=== PATIENT | female | born 1990 | race Caucasian/White ===

== ENCOUNTER 2018-01-21 15:58 | Emergency (ER) | payer SELFPAY ==
[2018-01-21 16:11] VITALS: BP 100/69; PULSE 86; RESP 14; TEMP 36.7; O2SAT 99; BMI 25.2
[2018-01-21 16:41] LABS: Hematocrit 39.3 % (36-46); Mean Corpuscular HGB Conc 33.1 % (30-36); Mean Corpuscular Hemoglobin 31.9 PG (26-34); Mean Corpuscular Volume 96.3 fL (80-100); Platelet Count 173 X10^3/uL (150-400); Red Blood Cell Count 4.08 X10^6/uL (4.0-5.2); Red Cell Distribution Width 13.2 % (11.6-14.8); White Blood Cell Count 5.3 X10^3/uL (4.5-11.0)
[2018-01-21 17:03] LABS: Alanine Aminotransferase 22 IU/L (9-52); Albumin 4.2 g/dL (3.5-5.0); Albumin Globulin Ratio 1.5 (1.0-2.8); Alkaline Phosphatase 39 U/L (38-126); Aspartate Aminotransferase 24 IU/L (14-36); Bilirubin Total 0.5 mg/dL (0.2-1.3); Blood Urea Nitrogen 7 mg/dL (7-17); Calcium 9.5 mg/dL (8.4-10.2); Carbon Dioxide 24 mmol/L (22-32); Chloride 105 mmol/L (98-107); Estimated Glomerular Filt Rate > 60.0 mL/min (>60); Globulin 2.8 g/dL (1.7-4.1); Glucose 82 mg/dL (70-100); Lipase 114 U/L (23-300); Potassium 5.1 mmol/L (3.4-5.1); Sodium 141 mmol/L (137-145)
[2018-01-21 17:14] LABS: HEMOLYSIS 56 (0-50)
[2018-01-21 17:17] LABS: Bacteria Urine None Seen
[2018-01-21 17:25] LABS: RBC Urine 1-5/HPF (0-5/HPF); Squamous Epithelial Cell Urine 1-5 /HPF; WBC Urine 1-5/HPF (0-5/HPF)
[2018-01-21 18:25] LABS: Neutrophils Absolute Manual 2809 /uL (3000-5900); RBC Morphology Normal Morphology; Total Cells Counted 100
[2018-01-21 19:54] VITALS: BP 101/64; PULSE 85; RESP 20; TEMP 36.7; O2SAT 100
--- NOTE | 2018-01-21 20:27 | ED.ABDPAIN ---
HPI - Abdominal Pain <FREDIS Dacosta - Last Filed: 01/22/18 00:21> General Chief Complaint: Abdominal Pain Stated Complaint: LEFT SIDE PAIN Time Seen by Provider: 01/21/18 17:12 Source: patient Mode of arrival: ambulatory Limitations: no limitations History of Present Illness HPI narrative: Patient presents with chief complaint of left-sided abdominal pain. This started yesterday. She denies any nausea vomiting diarrhea or constipation. She denies any fevers. She denies any chest pain or shortness of breath. She denies any appetite changes. She states she started her period about 3 days ago. Her last period was last month. She denies chance of . She reports no abdominal history and has no history of abdominal surgeries. She denies any urinary symptoms and denies flank pain. She denies dysuria or urgency but does complain of some frequency. She denies any vaginal discharge. She states her current menstrual bleeding is light. Related Data Home Medications Medication Instructions Recorded Confirmed No Known Home Medications 01/21/18 01/21/18 Allergies Allergy/AdvReac Type Severity Reaction Status Date / Time aspirin Allergy Intermediate Hives Verified 01/21/18 16:14 Penicillins Allergy Intermediate Hives Verified 01/21/18 16:14 Review of Systems <KLEBER Dacosta - Last Filed: 01/22/18 00:21> Review of Systems GENERAL: Denies chills, fatigue, malaise, fever, sweats. HEENT: Denies sinus pain, ear pain, sore throat, difficulty swallowing, dizziness. RESPIRATORY: Denies dyspnea, cough, wheezing, hemoptysis, sputum. CARDIOVASCULAR: Denies chest pain, palpitations, orthopnea, edema, GASTROINTESTINAL: See HPI : Denies dysuria, frequency, incontinence, hematuria, urinary retention. MUSCULOSKELETAL: denies weakness, joint pain, or bony pain SKIN: Denies rash, skin lesions, or other NEUROLOGIC: Denies weakness, headache, numbness, change in speech, confusion, seizures, incoordination. PSYCHIATRIC: No concerning psychosocial issues. 12 point review of systems is negative except for those stated above Exam <KLEBER Dacosta - Last Filed: 01/22/18 00:21> Narrative Exam Narrative: GENERAL: This is a well-nourished, well-developed patient, in mild distress lying on stretcher HEAD: Atraumatic. Normocephalic. No temporal or scalp tenderness. EYES: Pupils equal round and reactive. Extraocular motions intact. No scleral icterus. No injection or drainage. ENT: Nose without bleeding, purulent drainage or septal hematoma. Throat without erythema, tonsillar hypertrophy or exudate. Uvula midline. Airway patent. NECK: Trachea midline. No JVD or lymphadenopathy. Supple, nontender, no meningeal signs. CARDIOVASCULAR: Regular rate and rhythm without murmurs, gallops, or rubs. RESPIRATORY: Clear to auscultation. Breath sounds equal bilaterally. No wheezes, rales, or rhonchi. GASTROINTESTINAL: Abdomen soft, nondistended. Active bowel sounds all 4 quadrants. No palpable hepatosplenomegaly. Tenderness to palpation of left upper quadrant and left lower quadrant with slight guarding noted. No pain to palpation right upper quadrant or right lower quadrant. EXTREMITIES: No clubbing, cyanosis, or edema. No joint tenderness, effusion, or edema noted. BACK: Nontender without deformity or crepitance. No flank tenderness. NEURO: AOx3. SKIN: No rash or erythema. Initial Vital Signs Initial Vital Signs: Vital Signs Temperature 98.1 F 01/21/18 16:11 Pulse Rate 86 01/21/18 16:11 Respiratory Rate 14 01/21/18 16:11 Blood Pressure 100/69 01/21/18 16:11 Pulse Oximetry 99 01/21/18 16:11 <Jeb Mcdonald DO - Last Filed: 01/22/18 05:42> Initial Vital Signs Initial Vital Signs: Vital Signs Temperature 98.1 F 01/21/18 16:11 Pulse Rate 86 01/21/18 16:11 Respiratory Rate 14 01/21/18 16:11 Blood Pressure 100/69 01/21/18 16:11 Pulse Oximetry 99 01/21/18 16:11 Course <FREDIS Dacosta - Last Filed: 01/22/18 00:21> Orders Ordered: ED Orders 01/21/18 21:04 US pelvic complete Stat 01/21/18 22:25 ABO RH Type Stat Discontinued Medications Acetaminophen (Tylenol) 650 mg PO NOW ONE Stop: 01/21/18 20:57 Last Admin: 01/21/18 21:03 Dose: 650 mg Morphine Sulfate (Morphine) 4 mg IV NOW ONE Stop: 01/21/18 20:29 Last Admin: 01/21/18 21:00 Dose: Ondansetron HCl (Zofran) 4 mg IV NOW ONE Stop: 01/21/18 20:29 Last Admin: 01/21/18 21:01 Dose: Ondansetron HCl (Zofran Odt) 4 mg PO NOW ONE Stop: 01/21/18 20:57 Last Admin: 01/21/18 21:02 Dose: 4 mg Oxycodone HCl (Percolone) 5 mg PO NOW ONE Stop: 01/22/18 00:01 Last Admin: 01/22/18 00:55 Dose: 5 mg Oxycodone/Acetaminophen (Endocet 5/325 Prepack) 1 bottle MISC SEEINSTR ONE Stop: 01/22/18 00:17 Last Admin: 01/22/18 00:43 Dose: 1 bottle Consultations Consultation #1: Spoke with Dr Crews regarding patient as well as senior maintenance technician's report of mass in ovary. Slight vaginal bleeding combined with elevated serum beta HCG and a mass in her ovary raise concern of ectopic. Time: 22:30 Consultation #2: Spoke with Dr Crews regarding the plan for patient. If official ultrasound report shows hemorrhagic ectopic, we will re page her. If there is no hemorrhage, we will give 50 mg methotrexate IM per meter and discharge her with pain control. Discussed plan for patient to follow up with her office in 4 days for repeat HCG. Time: 22:45 Consultation #3: Spoke with Dr. Crews again regarding ultrasound results. Plan is to discharge patient. Have her follow up in 4 days with clinic. Discussed strict return precautions. Time: 12:00 Vital Signs - 8 hr 01/21/18 23:17 01/22/18 01:10 Pulse Rate 64 65 Respiratory Rate 14 18 Blood Pressure 101/58 L Blood Pressure [Right Arm] 103/62 Pulse Oximetry 98 100 <Jeb Mcdonald DO - Last Filed: 01/22/18 05:42> Orders Ordered: ED Orders 01/21/18 21:04 US pelvic complete Stat 01/21/18 22:25 ABO RH Type Stat Discontinued Medications Acetaminophen (Tylenol) 650 mg PO NOW ONE Stop: 01/21/18 20:57 Last Admin: 01/21/18 21:03 Dose: 650 mg Morphine Sulfate (Morphine) 4 mg IV NOW ONE Stop: 01/21/18 20:29 Last Admin: 01/21/18 21:00 Dose: Ondansetron HCl (Zofran) 4 mg IV NOW ONE Stop: 01/21/18 20:29 Last Admin: 01/21/18 21:01 Dose: Ondansetron HCl (Zofran Odt) 4 mg PO NOW ONE Stop: 01/21/18 20:57 Last Admin: 01/21/18 21:02 Dose: 4 mg Oxycodone HCl (Percolone) 5 mg PO NOW ONE Stop: 01/22/18 00:01 Last Admin: 01/22/18 00:55 Dose: 5 mg Oxycodone/Acetaminophen (Endocet 5/325 Prepack) 1 bottle MISC SEEINSTR ONE Stop: 01/22/18 00:17 Last Admin: 01/22/18 00:43 Dose: 1 bottle Vital Signs - 8 hr 01/21/18 23:17 01/22/18 01:10 Pulse Rate 64 65 Respiratory Rate 14 18 Blood Pressure 101/58 L Blood Pressure [Right Arm] 103/62 Pulse Oximetry 98 100 MDM - Abdominal Pain <KATHERINE Dacosta-BC - Last Filed: 01/22/18 00:21> Lab Data Result diagrams: 01/21/18 16:21 01/21/18 16:21 Lab Results 01/21/18 01/21/18 01/21/18 Range/Units 16:21 16:21 16:21 WBC 5.3 (4.5-11.0) X10^3/uL RBC 4.08 (4.0-5.2) X10^6/uL Hgb 13.0 (12.0-16.0) g/dL Hct 39.3 (36-46) % MCV 96.3 (80-100) fL MCH 31.9 (26-34) PG MCHC 33.1 (30-36) % RDW 13.2 (11.6-14.8) % Plt Count 173 (150-400) X10^3/uL Total Counted 100 Seg Neutrophils % 53.0 (38-70) % Lymphocytes % (Manual) 42.0 (25-45) % Monocytes % (Manual) 3.0 (2-11) % Eosinophils % (Manual) 2.0 (2-4) % Neutrophils # (Manual) 2809 L (3012-4862) /uL RBC Morphology Normal morphology Sodium 141 (137-145) mmol/L Potassium 5.1 (3.4-5.1) mmol/L Chloride 105 (98-107) mmol/L Carbon Dioxide 24 (22-32) mmol/L BUN 7 (7-17) mg/dL Creatinine 0.70 (0.52-1.04) mg/dL Estimated GFR > 60.0 (>60) mL/min BUN/Creatinine Ratio 10.0 (6-22) Glucose 82 (70-100) mg/dL Calcium 9.5 (8.4-10.2) mg/dL Total Bilirubin 0.5 (0.2-1.3) mg/dL AST 24 (14-36) IU/L ALT 22 (9-52) IU/L Alkaline Phosphatase 39 (38-126) U/L Total Protein 7.0 (6.3-8.2) g/dL Albumin 4.2 (3.5-5.0) g/dL Globulin 2.8 (1.7-4.1) g/dL Albumin/Globulin Ratio 1.5 (1.0-2.8) Lipase 114 (23-300) U/L HCG, Quant 2430.4 mIU/mL Urine RBC (0-5/HPF) Urine WBC (0-5/HPF) Ur Squamous Epith Cells Urine Bacteria (None) Ur Culture Indicated? Micro UA Comment Blood Type 01/21/18 01/21/18 Range/Units 16:30 22:25 WBC (4.5-11.0) X10^3/uL RBC (4.0-5.2) X10^6/uL Hgb (12.0-16.0) g/dL Hct (36-46) % MCV (80-100) fL MCH (26-34) PG MCHC (30-36) % RDW (11.6-14.8) % Plt Count (150-400) X10^3/uL Total Counted Seg Neutrophils % (38-70) % Lymphocytes % (Manual) (25-45) % Monocytes % (Manual) (2-11) % Eosinophils % (Manual) (2-4) % Neutrophils # (Manual) (5320-1540) /uL RBC Morphology Sodium (137-145) mmol/L Potassium (3.4-5.1) mmol/L Chloride (98-107) mmol/L Carbon Dioxide (22-32) mmol/L BUN (7-17) mg/dL Creatinine (0.52-1.04) mg/dL Estimated GFR (>60) mL/min BUN/Creatinine Ratio (6-22) Glucose (70-100) mg/dL Calcium (8.4-10.2) mg/dL Total Bilirubin (0.2-1.3) mg/dL AST (14-36) IU/L ALT (9-52) IU/L Alkaline Phosphatase (38-126) U/L Total Protein (6.3-8.2) g/dL Albumin (3.5-5.0) g/dL Globulin (1.7-4.1) g/dL Albumin/Globulin Ratio (1.0-2.8) Lipase (23-300) U/L HCG, Quant mIU/mL Urine RBC 1-5/hpf (0-5/HPF) Urine WBC 1-5/hpf (0-5/HPF) Ur Squamous Epith Cells 1-5 /hpf Urine Bacteria None seen (None) Ur Culture Indicated? 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 Coexistent blood clot or endometriosis not excluded. Molar should be considered in the setting of increased HCG. Also noted right ovarian corpus luteal cyst with size in the physiologic range. Bilateral ovarian flow documented. ECHO Brittany material noted within the endometrial cavity with eccentric blood flow. Ill-defined margins of the endometrium margin junctional zone. [facility] Narrative Medical decision making narrative: Patient presents with chief complaint of abdominal pain. Though she denied possibility of , she had several urine positive HCG. She did have an elevated serum quant HCG at 2430. Thus with her abdominal pain, elevated HCG, vaginal bleeding, a ultrasound was obtained. This raised concern for a mass in her right ovary. Official ultrasound report raise concern for echogenic material noted in the endometrial cavity. Radiology discussed possibility of a molar . I spoke with Dr. Crews, who stated that her beta HCG is not high enough to be considered for molar . Plan is to discharge patient with strict follow-up on Wednesday. Patient's blood type is A positive and thus does not need RhoGAM. Discussed at length with patient return precautions for severe abdominal pain fever, worsening, any acute concerns. Discussed importance of follow-up on Wednesday. Patient had no questions or concerns upon discharge. <Jeb Mcdonald, DO - Last Filed: 01/22/18 05:42> Lab Data Lab Results 01/21/18 01/21/18 01/21/18 Range/Units 16:21 16:21 16:21 WBC 5.3 (4.5-11.0) X10^3/uL RBC 4.08 (4.0-5.2) X10^6/uL Hgb 13.0 (12.0-16.0) g/dL Hct 39.3 (36-46) % MCV 96.3 (80-100) fL MCH 31.9 (26-34) PG MCHC 33.1 (30-36) % RDW 13.2 (11.6-14.8) % Plt Count 173 (150-400) X10^3/uL Total Counted 100 Seg Neutrophils % 53.0 (38-70) % Lymphocytes % (Manual) 42.0 (25-45) % Monocytes % (Manual) 3.0 (2-11) % Eosinophils % (Manual) 2.0 (2-4) % Neutrophils # (Manual) 2809 L (6320-8377) /uL RBC Morphology Normal morphology Sodium 141 (137-145) mmol/L Potassium 5.1 (3.4-5.1) mmol/L Chloride 105 (98-107) mmol/L Carbon Dioxide 24 (22-32) mmol/L BUN 7 (7-17) mg/dL Creatinine 0.70 (0.52-1.04) mg/dL Estimated GFR > 60.0 (>60) mL/min BUN/Creatinine Ratio 10.0 (6-22) Glucose 82 (70-100) mg/dL Calcium 9.5 (8.4-10.2) mg/dL Total Bilirubin 0.5 (0.2-1.3) mg/dL AST 24 (14-36) IU/L ALT 22 (9-52) IU/L Alkaline Phosphatase 39 (38-126) U/L Total Protein 7.0 (6.3-8.2) g/dL Albumin 4.2 (3.5-5.0) g/dL Globulin 2.8 (1.7-4.1) g/dL Albumin/Globulin Ratio 1.5 (1.0-2.8) Lipase 114 (23-300) U/L HCG, Quant 2430.4 mIU/mL Urine RBC (0-5/HPF) Urine WBC (0-5/HPF) Ur Squamous Epith Cells Urine Bacteria (None) Ur Culture Indicated? Micro UA Comment Blood Type 01/21/18 01/21/18 Range/Units 16:30 22:25 WBC (4.5-11.0) X10^3/uL RBC (4.0-5.2) X10^6/uL Hgb (12.0-16.0) g/dL Hct (36-46) % MCV (80-100) fL MCH (26-34) PG MCHC (30-36) % RDW (11.6-14.8) % Plt Count (150-400) X10^3/uL Total Counted Seg Neutrophils % (38-70) % Lymphocytes % (Manual) (25-45) % Monocytes % (Manual) (2-11) % Eosinophils % (Manual) (2-4) % Neutrophils # (Manual) (4975-2080) /uL RBC Morphology Sodium (137-145) mmol/L Potassium (3.4-5.1) mmol/L Chloride (98-107) mmol/L Carbon Dioxide (22-32) mmol/L BUN (7-17) mg/dL Creatinine (0.52-1.04) mg/dL Estimated GFR (>60) mL/min BUN/Creatinine Ratio (6-22) Glucose (70-100) mg/dL Calcium (8.4-10.2) mg/dL Total Bilirubin (0.2-1.3) mg/dL AST (14-36) IU/L ALT (9-52) IU/L Alkaline Phosphatase (38-126) U/L Total Protein (6.3-8.2) g/dL Albumin (3.5-5.0) g/dL Globulin (1.7-4.1) g/dL Albumin/Globulin Ratio (1.0-2.8) Lipase (23-300) U/L HCG, Quant mIU/mL Urine RBC 1-5/hpf (0-5/HPF) Urine WBC 1-5/hpf (0-5/HPF) Ur Squamous Epith Cells 1-5 /hpf Urine Bacteria None seen (None) Ur Culture Indicated? Not Reportable Micro UA Comment Not Reportable Blood Type A Positive Point of care testing: Point of Care Testing Test Results Positive Urine Dip Bedside Urine Glucose Negative Bedside Urine Bilirubin - Negative Bedside Urine Ketone - Negative Urine Specific Palm 1.030 Bedside Urine Occult Blood +++ Bedside Urine pH 6.0 Bedside Urine Protein +/- 15 Bedside Urine Urobilinogen - Negative Bedside Urine Nitrite - Negative Bedside Urine Leukocytes - Negative Esterase Discharge Plan Departure Patient Disposition: Home Clinical Impression: Spontaneous Discharge Date/Time: 01/22/18 01:11 Interventions: ED Discharge Assessment Last Done: 01/22/18 01:10 Instructions: DI for Miscarriage, DI for Abdominal Pain-Adult Activity Restrictions/Additional Instructions: You came in today for abdominal pain. We found that you had a positive test. However ultrasound does not show an intrauterine at this time. I believe you had a spontaneous miscarriage. Please follow-up with Dr. Crews on Wednesday. This is absolutely imperative. Come back to the emergency department if you have any acute pain, fever or any acute concerns. I want you to have a low threshold for coming back. I have given you a small pack of medication prescription. Please do not drive on this as it is a narcotic. It could also be constipating. Again, please follow-up as we discussed on Wednesday. Please come back to the emergency department if necessary. Prescriptions: No Action No Known Home Medications RF: 0 Referrals: Radha Crews DO [Physician] - <Jeb Mcdonald DO - Last Filed: 01/22/18 05:42> Cosign ED Attending Alfredature Attestation: I was immediately available in the department for consultation. Documentation has been reviewed. I agree with assessment and plan.
[2018-01-21] MEDS: ONDANSETRON 4 MG ODT PO (21:02)
[2018-01-21] MEDS: ACETAMINOPHEN 325 MG TABLET 650 MG PO (21:03)
--- NOTE | 2018-01-21 21:04 | DI.US.S_ITS ---
PROCEDURE: US PELVIC COMPLETE INDICATIONS: POSITIVE HCG; BLEEDING TECHNIQUE: Real-time scanning was performed of the pelvic organs, with image documentation. Additional endovaginal scanning was necessary due to incomplete visualization of the adnexal and endometrial structures by transabdominal scanning. COMPARISON: None. FINDINGS: Transabdominal scanning: Limited scanning through the kidneys shows no hydronephrosis. No pathologic free abdominal or pelvic fluid. Endovaginal scanning: Uterus: Uterus measures 7.6 x 3.5 x 4.8 cm. The endometrial complex measures 13.5 mm in diameter. An irregularly marginated echogenic avascular mass is present within the endometrial canal. There is circumferential hyperemia within the endometrium. No intrauterine gestation or gestational sac visualized. Trace hypoechoic fluid is present within the endometrial canal. Ovaries: The right ovary measures 2.6 x 1.7 x 1.5 cm. There is a 1.3 x 1.1 x 1.2 cm thick rimmed, centrally cystic mass within the right ovary with peripheral vascularity. The left ovary measures 3.4 x 1.3 x 1.0 cm and has normal echotexture. IMPRESSION: 1. Avascular echogenic mass within the endometrial canal. Differential considerations include retained products of conception, clot, and molar . Although less likely, early dates and intrauterine gestation could also be considered the differential. 2. Findings suspicious for right corpus luteal cyst. However, given the lack of intrauterine gestation or visualized gestational sac, ectopic cannot be excluded and close clinical surveillance is recommended. These findings were discussed with Dr. Fair at 9 AM on 01/22/18. Dictated by: Cary Amaro M.D. on 01/22/2018 at 8:55 Approved by: Cary Amaro M.D. on 01/22/2018 at 9:01
--- NOTE | 2018-01-21 21:08 | PC.NURSE ---
Urine confirmed by three time with preg test.
[2018-01-21 21:17] LABS: HCG Quantitative /Beta subunit 2430.4 mIU/mL
[2018-01-21 23:17] VITALS: BP 103/62; PULSE 64; RESP 14; O2SAT 98
--- NOTE | 2018-01-21 23:38 | ED_ITS ---
HPI - Abdominal Pain <FREDIS Dacosta - Last Filed: 01/22/18 00:21> General Chief Complaint: Abdominal Pain Stated Complaint: LEFT SIDE PAIN Time Seen by Provider: 01/21/18 17:12 Source: patient Mode of arrival: ambulatory Limitations: no limitations History of Present Illness HPI narrative: Patient presents with chief complaint of left-sided abdominal pain. This started yesterday. She denies any nausea vomiting diarrhea or constipation. She denies any fevers. She denies any chest pain or shortness of breath. She denies any appetite changes. She states she started her period about 3 days ago. Her last period was last month. She denies chance of . She reports no abdominal history and has no history of abdominal surgeries. She denies any urinary symptoms and denies flank pain. She denies dysuria or urgency but does complain of some frequency. She denies any vaginal discharge. She states her current menstrual bleeding is light. Related Data Home Medications Medication Instructions Recorded Confirmed No Known Home Medications 01/21/18 01/21/18 Allergies Allergy/AdvReac Type Severity Reaction Status Date / Time aspirin Allergy Intermediate Hives Verified 01/21/18 16:14 Penicillins Allergy Intermediate Hives Verified 01/21/18 16:14 Review of Systems <KLEBER Dacosta - Last Filed: 01/22/18 00:21> Review of Systems GENERAL: Denies chills, fatigue, malaise, fever, sweats. HEENT: Denies sinus pain, ear pain, sore throat, difficulty swallowing, dizziness. RESPIRATORY: Denies dyspnea, cough, wheezing, hemoptysis, sputum. CARDIOVASCULAR: Denies chest pain, palpitations, orthopnea, edema, GASTROINTESTINAL: See HPI : Denies dysuria, frequency, incontinence, hematuria, urinary retention. MUSCULOSKELETAL: denies weakness, joint pain, or bony pain SKIN: Denies rash, skin lesions, or other NEUROLOGIC: Denies weakness, headache, numbness, change in speech, confusion, seizures, incoordination. PSYCHIATRIC: No concerning psychosocial issues. 12 point review of systems is negative except for those stated above Exam <KLEBER Dacosta - Last Filed: 01/22/18 00:21> Narrative Exam Narrative: GENERAL: This is a well-nourished, well-developed patient, in mild distress lying on stretcher HEAD: Atraumatic. Normocephalic. No temporal or scalp tenderness. EYES: Pupils equal round and reactive. Extraocular motions intact. No scleral icterus. No injection or drainage. ENT: Nose without bleeding, purulent drainage or septal hematoma. Throat without erythema, tonsillar hypertrophy or exudate. Uvula midline. Airway patent. NECK: Trachea midline. No JVD or lymphadenopathy. Supple, nontender, no meningeal signs. CARDIOVASCULAR: Regular rate and rhythm without murmurs, gallops, or rubs. RESPIRATORY: Clear to auscultation. Breath sounds equal bilaterally. No wheezes , rales, or rhonchi. GASTROINTESTINAL: Abdomen soft, nondistended. Active bowel sounds all 4 quadrants. No palpable hepatosplenomegaly. Tenderness to palpation of left upper quadrant and left lower quadrant with slight guarding noted. No pain to palpation right upper quadrant or right lower quadrant. EXTREMITIES: No clubbing, cyanosis, or edema. No joint tenderness, effusion, or edema noted. BACK: Nontender without deformity or crepitance. No flank tenderness. NEURO: AOx3. SKIN: No rash or erythema. Initial Vital Signs Initial Vital Signs: Vital Signs Temperature 98.1 F 01/21/18 16:11 Pulse Rate 86 01/21/18 16:11 Respiratory Rate 14 01/21/18 16:11 Blood Pressure 100/69 01/21/18 16:11 Pulse Oximetry 99 01/21/18 16:11 <Jeb Mcdonald DO - Last Filed: 01/22/18 05:42> Initial Vital Signs Initial Vital Signs: Vital Signs Temperature 98.1 F 01/21/18 16:11 Pulse Rate 86 01/21/18 16:11 Respiratory Rate 14 01/21/18 16:11 Blood Pressure 100/69 01/21/18 16:11 Pulse Oximetry 99 01/21/18 16:11 Course <FREDIS Dacosta - Last Filed: 01/22/18 00:21> Orders Ordered: ED Orders 01/21/18 21:04 US pelvic complete Stat 01/21/18 22:25 ABO RH Type Stat Discontinued Medications Acetaminophen (Tylenol) 650 mg PO NOW ONE Stop: 01/21/18 20:57 Last Admin: 01/21/18 21:03 Dose: 650 mg Morphine Sulfate (Morphine) 4 mg IV NOW ONE Stop: 01/21/18 20:29 Last Admin: 01/21/18 21:00 Dose: Ondansetron HCl (Zofran) 4 mg IV NOW ONE Stop: 01/21/18 20:29 Last Admin: 01/21/18 21:01 Dose: Ondansetron HCl (Zofran Odt) 4 mg PO NOW ONE Stop: 01/21/18 20:57 Last Admin: 01/21/18 21:02 Dose: 4 mg Oxycodone HCl (Percolone) 5 mg PO NOW ONE Stop: 01/22/18 00:01 Last Admin: 01/22/18 00:55 Dose: 5 mg Oxycodone/Acetaminophen (Endocet 5/325 Prepack) 1 bottle MISC SEEINSTR ONE Stop: 01/22/18 00:17 Last Admin: 01/22/18 00:43 Dose: 1 bottle Consultations Consultation #1: Spoke with Dr Crews regarding patient as well as iv technician's report of mass in ovary. Slight vaginal bleeding combined with elevated serum beta HCG and a mass in her ovary raise concern of ectopic. Time: 22:30 Consultation #2: Spoke with Dr Crews regarding the plan for patient. If official ultrasound report shows hemorrhagic ectopic, we will re page her. If there is no hemorrhage, we will give 50 mg methotrexate IM per meter and discharge her with pain control. Discussed plan for patient to follow up with her office in 4 days for repeat HCG. Time: 22:45 Consultation #3: Spoke with Dr. Crews again regarding ultrasound results. Plan is to discharge patient. Have her follow up in 4 days with clinic. Discussed strict return precautions. Time: 12:00 Vital Signs - 8 hr 01/21/18 23:17 01/22/18 01:10 Pulse Rate 64 65 Respiratory Rate 14 18 Blood Pressure 101/58 L Blood Pressure [Right Arm] 103/62 Pulse Oximetry 98 100 <Jeb Mcdonald DO - Last Filed: 01/22/18 05:42> Orders Ordered: ED Orders 01/21/18 21:04 US pelvic complete Stat 01/21/18 22:25 ABO RH Type Stat Discontinued Medications Acetaminophen (Tylenol) 650 mg PO NOW ONE Stop: 01/21/18 20:57 Last Admin: 01/21/18 21:03 Dose: 650 mg Morphine Sulfate (Morphine) 4 mg IV NOW ONE Stop: 01/21/18 20:29 Last Admin: 01/21/18 21:00 Dose: Ondansetron HCl (Zofran) 4 mg IV NOW ONE Stop: 01/21/18 20:29 Last Admin: 01/21/18 21:01 Dose: Ondansetron HCl (Zofran Odt) 4 mg PO NOW ONE Stop: 01/21/18 20:57 Last Admin: 01/21/18 21:02 Dose: 4 mg Oxycodone HCl (Percolone) 5 mg PO NOW ONE Stop: 01/22/18 00:01 Last Admin: 01/22/18 00:55 Dose: 5 mg Oxycodone/Acetaminophen (Endocet 5/325 Prepack) 1 bottle MISC SEEINSTR ONE Stop: 01/22/18 00:17 Last Admin: 01/22/18 00:43 Dose: 1 bottle Vital Signs - 8 hr 01/21/18 23:17 01/22/18 01:10 Pulse Rate 64 65 Respiratory Rate 14 18 Blood Pressure 101/58 L Blood Pressure [Right Arm] 103/62 Pulse Oximetry 98 100 MDM - Abdominal Pain <KATHERINE Dacosta-BC - Last Filed: 01/22/18 00:21> Lab Data Result diagrams: 01/21/18 16:21 01/21/18 16:21 Lab Results 01/21/18 01/21/18 01/21/18 Range/Units 16:21 16:21 16:21 WBC 5.3 (4.5-11.0) X10^3/uL RBC 4.08 (4.0-5.2) X10^6/uL Hgb 13.0 (12.0-16.0) g/dL Hct 39.3 (36-46) % MCV 96.3 (80-100) fL MCH 31.9 (26-34) PG MCHC 33.1 (30-36) % RDW 13.2 (11.6-14.8) % Plt Count 173 (150-400) X10^3/uL Total Counted 100 Seg Neutrophils % 53.0 (38-70) % Lymphocytes % (Manual) 42.0 (25-45) % Monocytes % (Manual) 3.0 (2-11) % Eosinophils % (Manual) 2.0 (2-4) % Neutrophils # (Manual) 2809 L (4481-8648) /uL RBC Morphology Normal morphology Sodium 141 (137-145) mmol/L Potassium 5.1 (3.4-5.1) mmol/L Chloride 105 (98-107) mmol/L Carbon Dioxide 24 (22-32) mmol/L BUN 7 (7-17) mg/dL Creatinine 0.70 (0.52-1.04) mg/dL Estimated GFR > 60.0 (>60) mL/min BUN/Creatinine Ratio 10.0 (6-22) Glucose 82 (70-100) mg/dL Calcium 9.5 (8.4-10.2) mg/dL Total Bilirubin 0.5 (0.2-1.3) mg/dL AST 24 (14-36) IU/L ALT 22 (9-52) IU/L Alkaline Phosphatase 39 (38-126) U/L Total Protein 7.0 (6.3-8.2) g/dL Albumin 4.2 (3.5-5.0) g/dL Globulin 2.8 (1.7-4.1) g/dL Albumin/Globulin Ratio 1.5 (1.0-2.8) Lipase 114 (23-300) U/L HCG, Quant 2430.4 mIU/mL Urine RBC (0-5/HPF) Urine WBC (0-5/HPF) Ur Squamous Epith Cells Urine Bacteria (None) Ur Culture Indicated? Micro UA Comment Blood Type 01/21/18 01/21/18 Range/Units 16:30 22:25 WBC (4.5-11.0) X10^3/uL RBC (4.0-5.2) X10^6/uL Hgb (12.0-16.0) g/dL Hct (36-46) % MCV (80-100) fL MCH (26-34) PG MCHC (30-36) % RDW (11.6-14.8) % Plt Count (150-400) X10^3/uL Total Counted Seg Neutrophils % (38-70) % Lymphocytes % (Manual) (25-45) % Monocytes % (Manual) (2-11) % Eosinophils % (Manual) (2-4) % Neutrophils # (Manual) (2227-4770) /uL RBC Morphology Sodium (137-145) mmol/L Potassium (3.4-5.1) mmol/L Chloride (98-107) mmol/L Carbon Dioxide (22-32) mmol/L BUN (7-17) mg/dL Creatinine (0.52-1.04) mg/dL Estimated GFR (>60) mL/min BUN/Creatinine Ratio (6-22) Glucose (70-100) mg/dL Calcium (8.4-10.2) mg/dL Total Bilirubin (0.2-1.3) mg/dL AST (14-36) IU/L ALT (9-52) IU/L Alkaline Phosphatase (38-126) U/L Total Protein (6.3-8.2) g/dL Albumin (3.5-5.0) g/dL Globulin (1.7-4.1) g/dL Albumin/Globulin Ratio (1.0-2.8) Lipase (23-300) U/L HCG, Quant mIU/mL Urine RBC 1-5/hpf (0-5/HPF) Urine WBC 1-5/hpf (0-5/HPF) Ur Squamous Epith Cells 1-5 /hpf Urine Bacteria None seen (None) Ur Culture Indicated? 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 Coexistent blood clot or endometriosis not excluded. Molar should be considered in the setting of increased HCG. Also noted right ovarian corpus luteal cyst with size in the physiologic range. Bilateral ovarian flow documented. ECHO Brittany material noted within the endometrial cavity with eccentric blood flow. Ill-defined margins of the endometrium margin junctional zone. [facility] Narrative Medical decision making narrative: Patient presents with chief complaint of abdominal pain. Though she denied possibility of , she had several urine positive HCG. She did have an elevated serum quant HCG at 2430. Thus with her abdominal pain, elevated HCG, vaginal bleeding, a ultrasound was obtained. This raised concern for a mass in her right ovary. Official ultrasound report raise concern for echogenic material noted in the endometrial cavity. Radiology discussed possibility of a molar . I spoke with Dr. Crews, who stated that her beta HCG is not high enough to be considered for molar . Plan is to discharge patient with strict follow-up on Wednesday. Patient's blood type is A positive and thus does not need RhoGAM. Discussed at length with patient return precautions for severe abdominal pain fever, worsening, any acute concerns. Discussed importance of follow-up on Wednesday. Patient had no questions or concerns upon discharge. <Jeb Mcdonald, DO - Last Filed: 01/22/18 05:42> Lab Data Lab Results 01/21/18 01/21/18 01/21/18 Range/Units 16:21 16:21 16:21 WBC 5.3 (4.5-11.0) X10^3/uL RBC 4.08 (4.0-5.2) X10^6/uL Hgb 13.0 (12.0-16.0) g/dL Hct 39.3 (36-46) % MCV 96.3 (80-100) fL MCH 31.9 (26-34) PG MCHC 33.1 (30-36) % RDW 13.2 (11.6-14.8) % Plt Count 173 (150-400) X10^3/uL Total Counted 100 Seg Neutrophils % 53.0 (38-70) % Lymphocytes % (Manual) 42.0 (25-45) % Monocytes % (Manual) 3.0 (2-11) % Eosinophils % (Manual) 2.0 (2-4) % Neutrophils # (Manual) 2809 L (6329-7504) /uL RBC Morphology Normal morphology Sodium 141 (137-145) mmol/L Potassium 5.1 (3.4-5.1) mmol/L Chloride 105 (98-107) mmol/L Carbon Dioxide 24 (22-32) mmol/L BUN 7 (7-17) mg/dL Creatinine 0.70 (0.52-1.04) mg/dL Estimated GFR > 60.0 (>60) mL/min BUN/Creatinine Ratio 10.0 (6-22) Glucose 82 (70-100) mg/dL Calcium 9.5 (8.4-10.2) mg/dL Total Bilirubin 0.5 (0.2-1.3) mg/dL AST 24 (14-36) IU/L ALT 22 (9-52) IU/L Alkaline Phosphatase 39 (38-126) U/L Total Protein 7.0 (6.3-8.2) g/dL Albumin 4.2 (3.5-5.0) g/dL Globulin 2.8 (1.7-4.1) g/dL Albumin/Globulin Ratio 1.5 (1.0-2.8) Lipase 114 (23-300) U/L HCG, Quant 2430.4 mIU/mL Urine RBC (0-5/HPF) Urine WBC (0-5/HPF) Ur Squamous Epith Cells Urine Bacteria (None) Ur Culture Indicated? Micro UA Comment Blood Type 01/21/18 01/21/18 Range/Units 16:30 22:25 WBC (4.5-11.0) X10^3/uL RBC (4.0-5.2) X10^6/uL Hgb (12.0-16.0) g/dL Hct (36-46) % MCV (80-100) fL MCH (26-34) PG MCHC (30-36) % RDW (11.6-14.8) % Plt Count (150-400) X10^3/uL Total Counted Seg Neutrophils % (38-70) % Lymphocytes % (Manual) (25-45) % Monocytes % (Manual) (2-11) % Eosinophils % (Manual) (2-4) % Neutrophils # (Manual) (2650-0180) /uL RBC Morphology Sodium (137-145) mmol/L Potassium (3.4-5.1) mmol/L Chloride (98-107) mmol/L Carbon Dioxide (22-32) mmol/L BUN (7-17) mg/dL Creatinine (0.52-1.04) mg/dL Estimated GFR (>60) mL/min BUN/Creatinine Ratio (6-22) Glucose (70-100) mg/dL Calcium (8.4-10.2) mg/dL Total Bilirubin (0.2-1.3) mg/dL AST (14-36) IU/L ALT (9-52) IU/L Alkaline Phosphatase (38-126) U/L Total Protein (6.3-8.2) g/dL Albumin (3.5-5.0) g/dL Globulin (1.7-4.1) g/dL Albumin/Globulin Ratio (1.0-2.8) Lipase (23-300) U/L HCG, Quant mIU/mL Urine RBC 1-5/hpf (0-5/HPF) Urine WBC 1-5/hpf (0-5/HPF) Ur Squamous Epith Cells 1-5 /hpf Urine Bacteria None seen (None) Ur Culture Indicated? Not Reportable Micro UA Comment Not Reportable Blood Type A Positive Point of care testing: Point of Care Testing Test Results Positive Urine Dip Bedside Urine Glucose Negative Bedside Urine Bilirubin - Negative Bedside Urine Ketone - Negative Urine Specific Brewster 1.030 Bedside Urine Occult Blood +++ Bedside Urine pH 6.0 Bedside Urine Protein +/- 15 Bedside Urine Urobilinogen - Negative Bedside Urine Nitrite - Negative Bedside Urine Leukocytes - Negative Esterase Discharge Plan Departure Patient Disposition: Home Clinical Impression: Spontaneous Discharge Date/Time: 01/22/18 01:11 Interventions: ED Discharge Assessment Last Done: 01/22/18 01:10 Instructions: DI for Miscarriage, DI for Abdominal Pain-Adult Activity Restrictions/Additional Instructions: You came in today for abdominal pain. We found that you had a positive test. However ultrasound does not show an intrauterine at this time. I believe you had a spontaneous miscarriage. Please follow-up with Dr. Crews on Wednesday. This is absolutely imperative. Come back to the emergency department if you have any acute pain, fever or any acute concerns. I want you to have a low threshold for coming back. I have given you a small pack of medication prescription. Please do not drive on this as it is a narcotic. It could also be constipating. Again, please follow-up as we discussed on Wednesday. Please come back to the emergency department if necessary. Prescriptions: No Action No Known Home Medications RF: 0 Referrals: Radha Crews DO [Physician] - <Jeb Mcdonald DO - Last Filed: 01/22/18 05:42> Cosign ED Attending Alfredature Attestation: I was immediately available in the department for consultation. Documentation has been reviewed. I agree with assessment and plan.
[2018-01-22] MEDS: OXYCODONE/APAP 5/325 PREPACK 1 BOTTLE MISC (00:43)
[2018-01-22] MEDS: OXYCODONE IR 5 MG TABLET PO (00:55)
[2018-01-22 01:10] VITALS: BP 101/58; PULSE 65; RESP 18; O2SAT 100
== END 2018-01-22 01:11 | disposition home or self-care (01) ==
PROVIDERS: Emergency Medicine; Emergency Provider Nurse Practitioner Family; Family Provider Family Medicine; PCP Family Medicine
DX: O03.9 Complete or unspecified spontaneous abortion without complication (principal)
CPT/HCPCS: 36415; 36591; 76830; 76856; 80053; 81003; 81015; 81025; 83690; 84702; 85025; 86900; 86901; 96374; 99282; 99284

== ENCOUNTER 2018-01-24 15:57 | Emergency (ER) | payer SELFPAY ==
[2018-01-24 16:04] VITALS: BP 104/74; PULSE 79; RESP 13; TEMP 36.9; O2SAT 100; BMI 25.0
[2018-01-24 16:30] VITALS: BP 106/68; PULSE 73; RESP 16; O2SAT 100
[2018-01-24 16:30] LABS: Add Manual Diff / Slide Review NO; Basophils Percent Auto 0.9 % (0-2); Hematocrit 37.6 % (36-46); Hemoglobin 12.6 g/dL (12.0-16.0); Lymphocytes Percent Auto 24.9 % (25-40); Mean Corpuscular HGB Conc 33.5 % (30-36); Mean Corpuscular Hemoglobin 31.5 PG (26-34); Monocytes Percent Auto 9.7 % (3-14); Neutrophils Absolute Auto 3900 /uL (3000-5900); Neutrophils Percent Auto 63.5 % (50-75); Platelet Count 204 X10^3/uL (150-400); Red Cell Distribution Width 13.1 % (11.6-14.8); White Blood Cell Count 6.2 X10^3/uL (4.5-11.0)
--- NOTE | 2018-01-24 16:39 | ED.ABDPAIN ---
HPI - Abdominal Pain General Chief Complaint: Chest Pain Stated Complaint: SHARP PAIN IN CHEST LIGHT HEADED Time Seen by Provider: 01/24/18 16:26 Source: patient Mode of arrival: ambulatory Limitations: no limitations History of Present Illness HPI narrative: This is a 27-year-old female who comes to the emergency department with complaint of abdominal and chest pain. Patient states she was here on the , she was diagnosed with possibly a molar, ectopic or miscarriage. She states that she has had a little bit more abdominal pain. She has continued to have vaginal bleeding. About 1 pad every 2 hr. She has been taking oxycodone for pain and ibuprofen but without a lot relief. No fevers. Abdomen no shortness of breath. She has felt a little bit lightheaded but with no syncope. No nausea, no vomiting. No diarrhea or constipation. No new urinary issues. Patient states her last menstrual period was in November and at the end of the month. She normally has re MD complaint: abdominal pain Quality: cramping Radiation: none Migration to: no migration Treatments prior to arrival: NSAIDs and other ( oxycodone) Related Data Hx Last Menstrual Period: End of November Previous Rx's Medication Instructions Recorded meloxicam [Mobic] 7.5 mg PO DAILY PRN #10 tab 01/24/18 Allergies Allergy/AdvReac Type Severity Reaction Status Date / Time aspirin Allergy Intermediate Hives Verified 01/21/18 16:14 Penicillins Allergy Intermediate Hives Verified 01/21/18 16:14 Review of Systems Review of Systems All systems reviewed & are unremarkable except as noted in HPI and below Constitutional Denies chills, Denies fever(s), Denies lethargy and Denies weakness Cardiovascular Reports chest pain, Denies diaphoresis, Denies syncope, Denies irregular heart rhythm, Reports lightheadedness, Denies dyspnea and Denies dyspnea on exertion Respiratory Denies cough, Denies dyspnea, Denies dyspnea on exertion and Denies wheezing Gastrointestinal Gastrointestinal: Reports abdominal pain, Denies change in bowel habits, Denies diarrhea, Denies nausea and Denies vomiting Genitourinary Reports as per HPI, Reports abnormal vaginal bleeding, Denies hematuria, Denies dysuria and Reports pelvic pain Neurologic Denies syncope and Denies weakness Allergic/Immunologic Denies wheezing PFSH Social History Smoking Status: Current every day smoker alcohol intake: never Exam Initial Vital Signs Initial Vital Signs: Vital Signs Temperature 98.5 F 01/24/18 16:04 Pulse Rate 79 01/24/18 16:04 Respiratory Rate 13 01/24/18 16:04 Blood Pressure 104/74 01/24/18 16:04 Pulse Oximetry 100 01/24/18 16:04 Const General: cooperative, well developed and in distress ( mild) Nutritional Appearance: well nourished Orientation: alert, awake, oriented x3 and not confused Chest Chest: normal inspection of the chest Resp Effort & Inspection: normal respiratory effort, able to speak in complete sentences, no respiratory distress and no use of accessory muscles Auscultation: clear to auscultation bilaterally, no rales, no rhonchi and no wheezes Cardio Rate: regular rate Rhythm: regular rhythm Heart Sounds: no click, no gallops, no murmurs and no rubs Pulses: normal peripheral pulses GI Inspection: non-distended Palpation: soft, no hepatosplenomegaly, No guarding, No pulsatile mass and No tender Auscultation: normal bowel sounds General: No CVA tenderness Back/Spine/Pelvis Back: No CVA tenderness Cervical Spine: pain with cervical ROM Course Orders Ordered: ED Orders 01/24/18 16:09 EKG-12 Lead Stat 01/24/18 16:10 Complete Blood Count AUTO DIFF Stat Comprehensive Metabolic Panel Stat HCG Quantitative Stat Lipase Stat Troponin & CK Cardiac Panel Stat Sodium Chloride (Normal Saline 0.9%) 1,000 mls @ 150 mls/hr IV CONT SIS Last Admin: 01/24/18 17:58 Dose: Discontinued Medications Sodium Chloride (Normal Saline 0.9%) 1,000 mls @ 1,000 mls/hr IV BOLUS ONE Stop: 01/24/18 17:39 Last Infusion: 01/24/18 17:58 Dose: 0 mls/hr Admin: 01/24/18 16:46 Dose: 1,000 mls/hr Ketorolac Tromethamine (Toradol) 15 mg IV NOW ONE Stop: 01/24/18 16:41 Last Admin: 01/24/18 16:45 Dose: 15 mg Reevaluation(s) Reevaluation #1: patient is much more comfortable after Toradol. Her blood pressure has been stable and she is not having any lightheadedness. Time: 17:58 Consultations Consultation #1: Spoke with Dr. Pang. HCG is trending downward from 3567-5469. Plan for Repeatultrasound tomorrow for comparison from the and patient will be seen in the office probably around 11:30 a.m.. The office will be calling the patient to set up an appointment time specifically. Time: 18:00 Vital Signs - 8 hr 01/24/18 16:04 01/24/18 16:30 01/24/18 17:00 Temperature 98.5 F Pulse Rate 79 73 84 Respiratory Rate 13 16 17 Blood Pressure 104/74 Blood Pressure [Right Arm] 106/68 104/74 Pulse Oximetry 100 100 100 01/24/18 17:30 Temperature Pulse Rate 61 Respiratory Rate 20 Blood Pressure Blood Pressure [Right Arm] 111/79 Pulse Oximetry 100 MDM - Abdominal Pain Lab Data Attestation: I reviewed the patient's lab results. Result diagrams: 01/24/18 16:10 01/24/18 16:10 Lab Results 01/24/18 01/24/18 Range/Units 16:10 16:10 WBC 6.2 (4.5-11.0) X10^3/uL RBC 4.00 (4.0-5.2) X10^6/uL Hgb 12.6 (12.0-16.0) g/dL Hct 37.6 (36-46) % MCV 94.0 (80-100) fL MCH 31.5 (26-34) PG MCHC 33.5 (30-36) % RDW 13.1 (11.6-14.8) % Plt Count 204 (150-400) X10^3/uL Neut % (Auto) 63.5 (50-75) % Lymph % (Auto) 24.9 L (25-40) % Dougherty % (Auto) 9.7 (3-14) % Eos % (Auto) 1.0 L (2-4) % Baso % (Auto) 0.9 (0-2) % Neut # (Auto) 3900 (4385-6820) /uL Sodium 141 (137-145) mmol/L Potassium 4.2 (3.4-5.1) mmol/L Chloride 104 (98-107) mmol/L Carbon Dioxide 28 (22-32) mmol/L BUN 9 (7-17) mg/dL Creatinine 0.70 (0.52-1.04) mg/dL Estimated GFR > 60.0 (>60) mL/min BUN/Creatinine Ratio 12.9 (6-22) Glucose 85 (70-100) mg/dL Calcium 9.2 (8.4-10.2) mg/dL Total Bilirubin 0.4 (0.2-1.3) mg/dL AST 22 (14-36) IU/L ALT 20 (9-52) IU/L Alkaline Phosphatase 43 (38-126) U/L Total Creatine Kinase 59 (30-135) U/L CK-MB (CK-2) TNP Troponin I < 0.012 (0.01-0.034) ng/mL Total Protein 7.3 (6.3-8.2) g/dL Albumin 4.3 (3.5-5.0) g/dL Globulin 3.0 (1.7-4.1) g/dL Albumin/Globulin Ratio 1.4 (1.0-2.8) Lipase 71 (23-300) U/L HCG, Quant 1840.8 mIU/mL ECG Data Attestation: I personally reviewed and interpreted this ECG as follows: Interpretation: Sinus rhythm with a rate of 73, IL 171 QRS is 71 and QTC [address] No [address] elevation or depression. [facility] Narrative Medical decision making narrative: This 27-year-old female comes with complaint of abdominal and chest pain has improved after Toradol. Patient was seen on the she had an elevated hCG at 2400 today's repeat is 1800. patient ultrasound showed possibly retained products versus molar versus full duty all cysts on the . Patient is more comfortable after pain medications. Her hemoglobin is stable, her vitals are stable here and she does not have an acute abdomen. Patient case was discussed with Dr. madrigal who is covering for Ob and plan is for her to be seen tomorrow at 11:30 a.m. and repeat ultrasound tomorrow as well. Patient is comfortable with this plan. She has oxycodone and ibuprofen at home and was given a script of Mobic as ibuprofen isn't very helpful. Discharge Plan Departure Patient Disposition: Home Clinical Impression: Spontaneous Instructions: DI for Miscarriage Activity Restrictions/Additional Instructions: You should receive a phone call in the morning from Dr. Crews is a office to such up for an appointment tomorrow morning, likely around 11:30 a.m.. They will also set you up for a repeat ultrasound tomorrow. Continue to take medications as prescribed. You may take Mobic twice daily for pain either with oxycodone or instead of. Do not take this with ibuprofen. Return to the emergency department for fevers greater than 100.4, rapidly worsening abdominal pain or lightheadedness, passing out all or new/other concerning symptoms. Prescriptions: New meloxicam [Mobic] 7.5 mg tablet 7.5 mg PO DAILY PRN (Reason: pain) Qty: 10 RF: 0
[2018-01-24 16:44] LABS: Alanine Aminotransferase 20 IU/L (9-52); Albumin 4.3 g/dL (3.5-5.0); Albumin Globulin Ratio 1.4 (1.0-2.8); Alkaline Phosphatase 43 U/L (38-126); Aspartate Aminotransferase 22 IU/L (14-36); BUN Creatinine Ratio 12.9 (6-22); Bilirubin Total 0.4 mg/dL (0.2-1.3); Blood Urea Nitrogen 9 mg/dL (7-17); Calcium 9.2 mg/dL (8.4-10.2); Carbon Dioxide 28 mmol/L (22-32); Chloride 104 mmol/L (98-107); Creatine Kinase 59 U/L (30-135); Estimated Glomerular Filt Rate > 60.0 mL/min (>60); Glucose 85 mg/dL (70-100); HEMOLYSIS 39 (0-50); Lipase 71 U/L (23-300); Potassium 4.2 mmol/L (3.4-5.1); Sodium 141 mmol/L (137-145); Total Protein 7.3 g/dL (6.3-8.2)
[2018-01-24] MEDS: KETOROLAC 60 MG/2 ML VIAL 15 MG IV (16:45)
[2018-01-24] MEDS: SODIUM CHLORIDE 0.9% 1,000 ML 1000 ML IV (16:46)
[2018-01-24 16:57] LABS: Troponin I < 0.012 ng/mL (0.01-0.034)
[2018-01-24 17:00] VITALS: BP 104/74; PULSE 84; RESP 17; O2SAT 100
[2018-01-24 17:01] LABS: HCG Quantitative /Beta subunit 1840.8 mIU/mL
[2018-01-24 17:30] VITALS: BP 111/79; PULSE 61; RESP 20; O2SAT 100
== END 2018-01-24 18:24 | disposition home or self-care (01) ==
PROVIDERS: Emergency Provider Emergency Medicine; Family Provider Family Medicine; PCP Family Medicine
DX: O03.9 Complete or unspecified spontaneous abortion without complication (principal)
CPT/HCPCS: 36591; 80053; 82550; 83690; 84484; 84702; 85025; 93005; 93010; 96361; 96374; 99283; 99284; J1885

== ENCOUNTER 2018-01-25 15:52 | Emergency (ER) | payer SELFPAY ==
[2018-01-25 16:01] VITALS: BP 129/79; PULSE 76; RESP 14; TEMP 36.1; O2SAT 100; BMI 24.1
[2018-01-25 16:33] LABS: Bacteria Urine Few (2-10); Culture Indicated Urine Cult Not Indicated; RBC Urine 0-1/HPF (0-5/HPF); Squamous Epithelial Cell Urine 5-10 /HPF; WBC Urine 1-5/HPF (0-5/HPF)
== END 2018-01-25 17:09 | disposition left against medical advice (07) ==
LOC: ED 15:56
PROVIDERS: Nurse Practitioner Family
DX: O03.9 Complete or unspecified spontaneous abortion without complication (principal)
CPT/HCPCS: 81003; 81015; 81025; 99281; 99282

== ENCOUNTER 2018-01-31 14:20 | Emergency (ER) | payer SELFPAY ==
[2018-01-31 14:32] VITALS: BP 103/65; PULSE 94; RESP 20; TEMP 36.8; O2SAT 98
--- NOTE | 2018-01-31 14:45 | DI.US.S_ITS ---
PROCEDURE: US PELVIC COMPLETE INDICATIONS: FOLLOW-UP ECTOPIC TECHNIQUE: Real-time scanning was performed of the pelvic organs, with image documentation. Additional endovaginal scanning was necessary due to incomplete visualization of the adnexal and endometrial structures by transabdominal scanning. COMPARISON: [facility], , US PELVIC COMPLETE, 01/21/2018, 21:41. FINDINGS: Transabdominal scanning: Limited scanning through the kidneys shows no hydronephrosis. No pathologic free abdominal or pelvic fluid. Endovaginal scanning: Uterus: Uterus is normal in size 7 x 3.2 x 5.1 cm. The endometrium measures 13.2 mm in combined thickness. Irregularly marginated echogenic avascular mass is again seen within the endometrial canal, not significantly changed in size and appearance from previous study. Circumferential hyperemia within endometrium is again seen. No pelvic free fluid is noted on the current study. No intrauterine gestational sac is identified. Ovaries: Right ovary measures 2.8 x 1.9 x 1.3 cm in size. Left ovary measures 3.5 x 1.4 x 1.1 cm in size. Previously described 13 x 11 x 12 mm thick rimmed centrally cystic mass within right ovary is again seen, currently measures 11 x 11 x 11 mm in size. Increased peripheral vascularity is again seen. No discrete left ovarian lesion is noted. IMPRESSION: 1. Again noted is avascular echogenic mass within endometrial canal, unchanged from previous study and may represent retained products of conception versus blood clots. No intrauterine gestational sac or pole is seen. No pelvic free fluid. 2. Interval decrease in size of thickwalled cystic structure in right ovary now measures 1.1 x 1.1 x 1.1 cm in size and may represent corpus luteal cyst. Continued correlation with patient's beta-hCG level is recommended. Dictated by: Ray Ocampo M.D. on 01/31/2018 at 15:50 Approved by: Ray Ocampo M.D. on 01/31/2018 at 15:56
[2018-01-31 15:23] LABS: HCG Quantitative /Beta subunit 618.31 mIU/mL
--- NOTE | 2018-01-31 17:42 | ED.RECABL ---
HPI - Recheck/Abnormal Lab/Rx <Sofiya Grant PA-C - Last Filed: 01/31/18 22:33> General Chief Complaint: Recheck/Abnormal Lab/Rx Stated Complaint: follow up ER visit for test Time Seen by Provider: 01/31/18 17:41 Source: patient Mode of arrival: ambulatory Limitations: no limitations History of Present Illness HPI narrative: This 27-year-old female who was seen here last week for possible retained products of conception versus molar comes in for follow-up. Apparently she went to clinic again and could not be seen there due to not having insurance. She states that she is feeling better. Bleeding has stopped and pain is significantly improved. She is not having fever, nausea or vomiting and states she has been back to work. Related Data Previous Rx's Medication Instructions Recorded meloxicam [Mobic] 7.5 mg PO DAILY PRN #10 tab 01/24/18 Allergies Allergy/AdvReac Type Severity Reaction Status Date / Time aspirin Allergy Intermediate Hives Verified 01/25/18 16:01 Penicillins Allergy Intermediate Hives Verified 01/25/18 16:01 Review of Systems <Sofiya Grant PA-C - Last Filed: 01/31/18 22:33> Review of Systems All systems reviewed & are unremarkable except as noted in HPI and below Exam <Sofiya Grant PA-C - Last Filed: 01/31/18 22:33> Narrative Exam Narrative: GENERAL APPEARANCE: Patient sitting comfortably, in no distress. LUNGS: Clear to auscultation bilaterally. HEART: Rate and rhythm regular without murmur, normal S1 and S2, no S3 or S4. Initial Vital Signs Initial Vital Signs: Vital Signs Temperature 98.2 F 01/31/18 14:32 Pulse Rate 94 H 01/31/18 14:32 Respiratory Rate 20 01/31/18 14:32 Blood Pressure 103/65 01/31/18 14:32 Pulse Oximetry 98 01/31/18 14:32 <Lilia Travis DO - Last Filed: 02/01/18 04:02> Initial Vital Signs Initial Vital Signs: Vital Signs Temperature 98.2 F 01/31/18 14:32 Pulse Rate 94 H 01/31/18 14:32 Respiratory Rate 20 01/31/18 14:32 Blood Pressure 103/65 01/31/18 14:32 Pulse Oximetry 98 01/31/18 14:32 Course <Sofiya Grant PA-C - Last Filed: 01/31/18 22:33> Additional Information: I spoke with Dr. Crews telephonic nurse case manager for production inspector and reviewed ultrasound and lab findings. Patient is feeling well. HCG is down trending so she does not appear to have ectopic , but does need loan specialist follow-up for possible retained products of conception versus another cause such as blood clotting related to the miscarriage. Patient does not have insurance and apparently was not seen at her office due to this. Dr. Crews agrees with concern for losing patient to f/u. We decided to have patient call her office (she is going to review findings with OB tomorrow) to set up f/u and will forward to social work tomorrow to see if they can help with insurance for her as this may be able to be retroactive. Orders Ordered: ED Orders 01/31/18 14:45 US pelvic complete Stat 01/31/18 14:51 HCG Quantitative Stat Vital Signs - 8 hr 01/31/18 14:32 01/31/18 18:24 Temperature 98.2 F 98 F Pulse Rate 94 H 70 Respiratory Rate 20 14 Blood Pressure 103/65 Blood Pressure [Left Arm] 110/65 Pulse Oximetry 98 99 <Lilia Travis DO - Last Filed: 02/01/18 04:02> Orders Ordered: ED Orders 01/31/18 14:45 US pelvic complete Stat 01/31/18 14:51 HCG Quantitative Stat Vital Signs - 8 hr 01/31/18 14:32 01/31/18 18:24 Temperature 98.2 F 98 F Pulse Rate 94 H 70 Respiratory Rate 20 14 Blood Pressure 103/65 Blood Pressure [Left Arm] 110/65 Pulse Oximetry 98 99 MDM - Recheck/Abnormal Lab/Rx <Sofiya Grant PA-C - Last Filed: 01/31/18 22:33> Lab Data Attestation: I reviewed the patient's lab results. Lab Results 01/31/18 Range/Units 14:51 HCG, Quant 618.31 mIU/mL Imaging Data pelvis: Radiologist's impression: View Report History [address] [address] Ultrasound Report Signed Patient: Lara Mcconnell MR#: [id number] : 1990 Acct:[id number] Age/Sex: 27 / F Date of Service: 01/31/18 Loc: ED Accession Number: [id number] Procedure: US pelvic complete Ordering Provider: Hipolito Isidro D.O. PROCEDURE: US PELVIC COMPLETE INDICATIONS: FOLLOW-UP ECTOPIC TECHNIQUE: Real-time scanning was performed of the pelvic organs, with image documentation. Additional endovaginal scanning was necessary due to incomplete visualization of the adnexal and endometrial structures by transabdominal scanning. COMPARISON: [facility], US PELVIC COMPLETE, 01/21/2018, 21:41. FINDINGS: Transabdominal scanning: Limited scanning through the kidneys shows no hydronephrosis. No pathologic free abdominal or pelvic fluid. Endovaginal scanning: Uterus: Uterus is normal in size 7 x 3.2 x 5.1 cm. The endometrium measures 13.2 mm in combined thickness. Irregularly marginated echogenic avascular mass is again seen within the endometrial canal, not significantly changed in size and appearance from previous study. Circumferential hyperemia within endometrium is again seen. No pelvic free fluid is noted on the current study. No intrauterine gestational sac is identified. Ovaries: Right ovary measures 2.8 x 1.9 x 1.3 cm in size. Left ovary measures 3.5 x 1.4 x 1.1 cm in size. Previously described 13 x 11 x 12 mm thick rimmed centrally cystic mass within right ovary is again seen, currently measures 11 x 11 x 11 mm in size. Increased peripheral vascularity is again seen. No discrete left ovarian lesion is noted. IMPRESSION: 1. Again noted is avascular echogenic mass within endometrial canal, unchanged from previous study and may represent retained products of conception versus blood clots. No intrauterine gestational sac or pole is seen. No pelvic free fluid. 2. Interval decrease in size of thickwalled cystic structure in right ovary now measures 1.1 x 1.1 x 1.1 cm in size and may represent corpus luteal cyst. Continued correlation with patient's beta-hCG level is recommended. Dictated by: Ray Ocampo M.D. on 01/31/2018 at 15:50 Approved by: Ray Ocampo M.D. on 01/31/2018 at 15:56 <Lilia Travis DO - Last Filed: 02/01/18 04:02> Lab Data Lab Results 01/31/18 Range/Units 14:51 HCG, Quant 618.31 mIU/mL Discharge Plan Departure Patient Disposition: Home Clinical Impression: Endometrial mass, Miscarriage Discharge Date/Time: 01/31/18 18:26 Interventions: ED Discharge Assessment Last Done: 01/31/18 18:25 Instructions: DI for Miscarriage Activity Restrictions/Additional Instructions: Please call [facility] tomorrow where you saw Dr. Crews previously. She is going to review your studies with the RAW SCALES OPERATOR there tomorrow and help with a follow-up plan. Please let them know that we spoke with Dr. Crews at the ED and that they do want you to be seen while insurance issues are figured out (we are going to have a pediatric social worker from the hospital call and see if we can help with this). Your lab numbers are improved today, and it is good your feeling better, but this does need follow-up as we talked about. Please return here if you have any acutely worsening symptoms while you are waiting for your follow-up appointment. Prescriptions: No Action meloxicam [Mobic] 7.5 mg tablet 7.5 mg PO DAILY PRN (Reason: pain) Qty: 10 RF: 0 Referrals: Radha Crews DO [Physician] - <Lilia Travis DO - Last Filed: 02/01/18 04:02> Cosign ED Attending Alfredature Attestation: I was immediately available in the department for consultation. This documentation has been reviewed and I agree with assessment and plan. Supervised by Lilia Travis DO
--- NOTE | 2018-01-31 17:46 | ED_ITS ---
HPI - Recheck/Abnormal Lab/Rx <Sofiya Grant PA-C - Last Filed: 01/31/18 22:33> General Chief Complaint: Recheck/Abnormal Lab/Rx Stated Complaint: follow up ER visit for test Time Seen by Provider: 01/31/18 17:41 Source: patient Mode of arrival: ambulatory Limitations: no limitations History of Present Illness HPI narrative: This 27-year-old female who was seen here last week for possible retained products of conception versus molar comes in for follow-up. Apparently she went to clinic again and could not be seen there due to not having insurance. She states that she is feeling better. Bleeding has stopped and pain is significantly improved. She is not having fever, nausea or vomiting and states she has been back to work. Related Data Previous Rx's Medication Instructions Recorded meloxicam [Mobic] 7.5 mg PO DAILY PRN #10 tab 01/24/18 Allergies Allergy/AdvReac Type Severity Reaction Status Date / Time aspirin Allergy Intermediate Hives Verified 01/25/18 16:01 Penicillins Allergy Intermediate Hives Verified 01/25/18 16:01 Review of Systems <Sofiya Grant PA-C - Last Filed: 01/31/18 22:33> Review of Systems All systems reviewed & are unremarkable except as noted in HPI and below Exam <Sofiya Grant PA-C - Last Filed: 01/31/18 22:33> Narrative Exam Narrative: GENERAL APPEARANCE: Patient sitting comfortably, in no distress. LUNGS: Clear to auscultation bilaterally. HEART: Rate and rhythm regular without murmur, normal S1 and S2, no S3 or S4. Initial Vital Signs Initial Vital Signs: Vital Signs Temperature 98.2 F 01/31/18 14:32 Pulse Rate 94 H 01/31/18 14:32 Respiratory Rate 20 01/31/18 14:32 Blood Pressure 103/65 01/31/18 14:32 Pulse Oximetry 98 01/31/18 14:32 <Lilia Travis DO - Last Filed: 02/01/18 04:02> Initial Vital Signs Initial Vital Signs: Vital Signs Temperature 98.2 F 01/31/18 14:32 Pulse Rate 94 H 01/31/18 14:32 Respiratory Rate 20 01/31/18 14:32 Blood Pressure 103/65 01/31/18 14:32 Pulse Oximetry 98 01/31/18 14:32 Course <Sofiya Grant PA-C - Last Filed: 01/31/18 22:33> Additional Information: I spoke with Dr. Crews dairy feed sales consultant for medical assistant ob gyn and reviewed ultrasound and lab findings. Patient is feeling well. HCG is down trending so she does not appear to have ectopic , but does need book reviewer follow-up for possible retained products of conception versus another cause such as blood clotting related to the miscarriage. Patient does not have insurance and apparently was not seen at her office due to this. Dr. Crews agrees with concern for losing patient to f/u. We decided to have patient call her office ( she is going to review findings with OB tomorrow) to set up f/u and will forward to social work tomorrow to see if they can help with insurance for her as this may be able to be retroactive. Orders Ordered: ED Orders 01/31/18 14:45 US pelvic complete Stat 01/31/18 14:51 HCG Quantitative Stat Vital Signs - 8 hr 01/31/18 14:32 01/31/18 18:24 Temperature 98.2 F 98 F Pulse Rate 94 H 70 Respiratory Rate 20 14 Blood Pressure 103/65 Blood Pressure [Left Arm] 110/65 Pulse Oximetry 98 99 <Lilia Travis DO - Last Filed: 02/01/18 04:02> Orders Ordered: ED Orders 01/31/18 14:45 US pelvic complete Stat 01/31/18 14:51 HCG Quantitative Stat Vital Signs - 8 hr 01/31/18 14:32 01/31/18 18:24 Temperature 98.2 F 98 F Pulse Rate 94 H 70 Respiratory Rate 20 14 Blood Pressure 103/65 Blood Pressure [Left Arm] 110/65 Pulse Oximetry 98 99 MDM - Recheck/Abnormal Lab/Rx <Sofiya Grant PA-C - Last Filed: 01/31/18 22:33> Lab Data Attestation: I reviewed the patient's lab results. Lab Results 01/31/18 Range/Units 14:51 HCG, Quant 618.31 mIU/mL Imaging Data pelvis: Radiologist's impression: View Report History [address] [address] Ultrasound Report Signed Patient: Lara Mcconnell MR#: [id number] : 1990 Acct:[id number] Age/Sex: 27 / F Date of Service: 01/31/18 Loc: ED Accession Number: [id number] Procedure: US pelvic complete Ordering Provider: Hipolito Isidro D.O. PROCEDURE: US PELVIC COMPLETE INDICATIONS: FOLLOW-UP ECTOPIC TECHNIQUE: Real-time scanning was performed of the pelvic organs, with image documentation. Additional endovaginal scanning was necessary due to incomplete visualization of the adnexal and endometrial structures by transabdominal scanning. COMPARISON: [facility], US PELVIC COMPLETE, 01/21/2018, 21:41. FINDINGS: Transabdominal scanning: Limited scanning through the kidneys shows no hydronephrosis. No pathologic free abdominal or pelvic fluid. Endovaginal scanning: Uterus: Uterus is normal in size 7 x 3.2 x 5.1 cm. The endometrium measures 13.2 mm in combined thickness. Irregularly marginated echogenic avascular mass is again seen within the endometrial canal, not significantly changed in size and appearance from previous study. Circumferential hyperemia within endometrium is again seen. No pelvic free fluid is noted on the current study. No intrauterine gestational sac is identified. Ovaries: Right ovary measures 2.8 x 1.9 x 1.3 cm in size. Left ovary measures 3.5 x 1.4 x 1.1 cm in size. Previously described 13 x 11 x 12 mm thick rimmed centrally cystic mass within right ovary is again seen, currently measures 11 x 11 x 11 mm in size. Increased peripheral vascularity is again seen. No discrete left ovarian lesion is noted. IMPRESSION: 1. Again noted is avascular echogenic mass within endometrial canal, unchanged from previous study and may represent retained products of conception versus blood clots. No intrauterine gestational sac or pole is seen. No pelvic free fluid. 2. Interval decrease in size of thickwalled cystic structure in right ovary now measures 1.1 x 1.1 x 1.1 cm in size and may represent corpus luteal cyst. Continued correlation with patient's beta-hCG level is recommended. Dictated by: Ray Ocampo M.D. on 01/31/2018 at 15:50 Approved by: Ray Ocampo M.D. on 01/31/2018 at 15:56 <Lilia Travis DO - Last Filed: 02/01/18 04:02> Lab Data Lab Results 01/31/18 Range/Units 14:51 HCG, Quant 618.31 mIU/mL Discharge Plan Departure Patient Disposition: Home Clinical Impression: Endometrial mass, Miscarriage Discharge Date/Time: 01/31/18 18:26 Interventions: ED Discharge Assessment Last Done: 01/31/18 18:25 Instructions: DI for Miscarriage Activity Restrictions/Additional Instructions: Please call [facility] tomorrow where you saw Dr. Crews previously. She is going to review your studies with the UPHOLSTERY TECH there tomorrow and help with a follow-up plan. Please let them know that we spoke with Dr. Crews at the ED and that they do want you to be seen while insurance issues are figured out (we are going to have a social service technician from the hospital call and see if we can help with this). Your lab numbers are improved today, and it is good your feeling better, but this does need follow-up as we talked about. Please return here if you have any acutely worsening symptoms while you are waiting for your follow-up appointment. Prescriptions: No Action meloxicam [Mobic] 7.5 mg tablet 7.5 mg PO DAILY PRN (Reason: pain) Qty: 10 RF: 0 Referrals: Radha Crews DO [Physician] - <Lilia Travis DO - Last Filed: 02/01/18 04:02> Cosign ED Attending Alfredature Attestation: I was immediately available in the department for consultation. This documentation has been reviewed and I agree with assessment and plan. Supervised by Lilia Travis DO
[2018-01-31 18:24] VITALS: BP 110/65; PULSE 70; RESP 14; TEMP 36.6; O2SAT 99
--- NOTE | 2018-02-01 09:12 | PC.NURSE ---
[facility] Telecommunications Repairer intervention regarding this patient. Multiple insurance as well as care access issues. Hand off completed.
== END 2018-01-31 18:26 | disposition home or self-care (01) ==
PROVIDERS: Emergency Medicine; Emergency Provider Internal Medicine
DX: N94.89 Other specified conditions associated with female genital organs and menstrual cycle (principal); O03.9 Complete or unspecified spontaneous abortion without complication
CPT/HCPCS: 36415; 76830; 76856; 84702; 99282; 99284